=== PATIENT | female | born 1950 | race Hispanic/Latino ===

== ENCOUNTER 2019-03-09 22:27 | Observation (INO) | payer MEDICARE ==
[2019-03-09 22:42] VITALS: BMI 30.2
--- NOTE | 2019-03-09 23:19 | ED PDOC ---
HPI: Abdomen Time Seen by Provider: 03/09/19 22:38 Chief Complaint (Nursing): Abdominal Pain Chief Complaint (Provider): Abdominal pain History Per: Patient History/Exam Limitations: no limitations Onset/Duration Of Symptoms: Hrs Outside of [place] travel?: No Current Symptoms Are (Timing): Still Present Location Of Pain/Discomfort: Diffuse, RUQ, LUQ Quality Of Discomfort: "Pain" Associated Symptoms: Chills, Nausea, Vomiting, Loss Of Appetite. denies: Fever, Diarrhea, Urinary Symptoms Additional History Per: Patient Additional Complaint(s): 69yo female, with history of HTN, Afib, comes to ER reporting upper abdominal pain since 5p today. Patient states the pain started on her right side and is now present across her abdomen. Patient reports associated nausea, vomiting, sweats and decreased appetite. Patient initially had shortness of breath but states that has now resolved. She also states her symptoms including the abdominal pain are intermittent and presented again upon arrival. She denies any recent illnesses but states she changed her blood pressure medication 3 days ago to enalapril; states today is the 3rd dose and the symptoms started after taking the medication. She did not have such symptoms while taking the first 2 doses. Otherwise, no chest pain, weakness, headache, or other complaints. Past Medical History Reviewed: Historical Data, Nursing Documentation, Vital Signs Vital Signs: Last Vital Signs Temp 98.1 F 03/09/19 22:29 Pulse 105 H 03/09/19 22:29 Resp 18 03/09/19 22:29 BP 159/86 H 03/09/19 22:29 Pulse Ox 98 03/09/19 22:29 Primary Care Provider: Ok Lindsay - Medical History PMH: Atrial Fibrillation, HTN - Surgical History Other surgeries: partial thyroidectomy, ankle surgery - Family History Family History: States: No Known Family Hx - Social History Current smoker - smoking cessation education provided: No Alcohol: None Drugs: Denies - Home Medications Home Medications: Ambulatory Orders Medication Instructions Recorded Acetaminophen [Tylenol 325mg tab] 650 mg PO Q6 PRN tab 03/10/19 Atorvastatin [Lipitor] 10 mg PO DAILY 03/10/19 Ciprofloxacin HCl [Cipro] 500 mg PO BID #14 tab 03/10/19 Enalapril Maleate 5 mg PO DAILY 03/10/19 Metronidazole [Flagyl] 500 mg PO TID #21 tab 03/10/19 - Allergies Allergies/Adverse Reactions: Allergies Allergy/AdvReac Type Severity Reaction Status Date / Time No Known Allergies Allergy Verified 03/09/19 22:29 Review of Systems ROS Statement: Except As Marked, All Systems Reviewed And Found Negative Constitutional: Positive for: Chills, Sweats. Negative for: Fever Cardiovascular: Negative for: Chest Pain Respiratory: Positive for: Shortness of Breath (now resolved) Gastrointestinal: Positive for: Nausea, Vomiting, Abdominal Pain. Negative for: Diarrhea, Constipation Neurological: Negative for: Weakness, Headache Physical Exam - Reviewed Nursing Documentation Reviewed: Yes Vital Signs Reviewed: Yes - Physical Exam Appears: Positive for: Non-toxic, No Acute Distress Head Exam: Positive for: ATRAUMATIC, NORMAL INSPECTION, NORMOCEPHALIC Skin: Positive for: Normal Color Eye Exam: Positive for: Normal appearance, EOMI, PERRL ENT: Positive for: Normal ENT Inspection Neck: Positive for: Supple Cardiovascular/Chest: Positive for: Regular Rate, Rhythm. Negative for: Tachycardia, Irregularly Irregular Respiratory: Positive for: Normal Breath Sounds. Negative for: Respiratory Distress Gastrointestinal/Abdominal: Positive for: Bowel Sounds, Soft, Tenderness (diffuse upper abdomen). Negative for: Mass, Guarding, Rebound Back: Positive for: Normal Inspection Extremity: Positive for: Normal ROM Neurological/Psych: Positive for: Awake, Alert, Normal Tone, Oriented (x 3) - Laboratory Results Result Diagrams: 03/10/19 14:41 03/10/19 00:05 - ECG ECG: Positive for: Interpreted By Me, Viewed By Me ECG Rhythm: Positive for: Sinus Rhythm Interpretation Of ECG: Occasional PVC Rate: 93 O2 Sat by Pulse Oximetry: 98 (RA) Pulse Ox Interpretation: Normal Medical Decision Making Medical Decision Making: Impression: Upper abdominal pain in setting of recent medication change, rule out obstrcution/infection/inflammation Plan: -- Labs -- EKG -- CT A/P w/ IV contrast -- Urinalysis -- Zofran 4mg IV 00:24 Labs reviewed, patient with elevated white count and neutrophils UA reviewed and patient with a UTI 01:13 VBG reviewed, lactate is 1.5 03:52 CT Abdomen/Pelvis: Minimal bilateral basilar subsegmental atelectatic pulmonary changes. Mild cardiomegaly. Small sliding hiatal hernia. Simple cysts of the right hepatic lobe the largest measuring 1.3 cm. Mild diffuse thickening of the transverse and descending colon. Underdistention, spasm versus mild uncomplicated colitis. Mild diffuse thickening of the gallbladder. Sonographic evaluation is suggested. 3.5 cm calcified uterine fibroid. Mild amount of free fluid in the abdomen or pelvis. Thickening of the small bowel loops in the right lower quadrant involving the ilium suggestive of acute inflammatory pathology without perforation or pneumatosis intestinalis. The liver is of uniform attenuation without mass or defect. There is no intra or extrahepatic biliary ductal dilatation. The spleen is normal. The pancreas is of normal contour and attenuation characteristics. There is no evidence of adrenal mass. Both kidneys demonstrate prompt and equal nephrograms. The kidneys are normal in size, shape and configuration. There is no evidence of renal or ureteral mass. No renal or ureteral calculi are identified. There is no hydroureter or hydronephrosis. No evidence for appendicitis. No evidence for small or large bowel obstruction. There is no evidence of intrinsic or extrinsic bladder mass. Images of the lung bases show no evidence of pleural or parenchymal mass. There are no pleural effusions. The bony structures are free of lytic or blastic lesions. IMPRESSION: Minimal bilateral basilar subsegmental atelectatic pulmonary changes. Mild cardiomegaly. Small sliding hiatal hernia. Simple cysts of the right hepatic lobe the largest measuring 1.3 cm. Mild diffuse thickening of the transverse and descending colon. Underdistention, spasm versus mild uncomplicated colitis. Mild diffuse thickening of the gallbladder. Sonographic evaluation is suggested. 3.5 cm calcified uterine fibroid. Mild amount of free fluid in the abdomen or pelvis. Thickening of the small bowel loops in the right lower quadrant involving the ilium suggestive of acute inflammatory pathology without perforation or pneumatosis intestinalis. US galbladder ordered for further evaluation. 0539 US Galbladder Findings: Limited visualization of the liver. Liver measures 14 cm. Normal gallbladder wall thickness measuring 2.1 mm. Cholelithiasis. No sonographic evidence of acute cholecystitis. Unremarkable IVC. Non-aneurysmal aorta. Nondilated common bile duct measuring 2.5 mm. Unremarkable right kidney. Impression: Cholelithiasis without acute cholecystitis. 05:43 Patient to be admitted due to UTI, sepsis. IV Antibiotics initiated. Patient admitted under hospitalist restaurant crew person. Plan for admission discussed with patient, who is agreeable. 05:[address] Jerez, who accepts patient for admission Care transferred over to Dr. Jerez at this time. Scribe Attestation: Documented by Renetta Child, acting as a scribe for Rashida Benson MD. Provider Scribe Attestation: All medical record entries made by the Scribe were at my direction and personally dictated by me. I have reviewed the chart and agree that the record accurately reflects my personal performance of the history, physical exam, medical decision making, and the department course for this patient. I have also personally directed, reviewed, and agree with the discharge instructions and disposition. Disposition - Clinical Impression Clinical Impression: Abdominal discomfort - Patient ED Disposition Is Patient to be Admitted: Yes Counseled Patient/Family Regarding: Studies Performed, Diagnosis - Disposition Disposition Time: 04:00 Condition: STABLE
[2019-03-10 00:10] LABS: BASO % 0.2 % (0.0-2.0); HEMOGLOBIN 14.8 g/dL (12.0-16.0); LYMPH # 0.8 K/uL (1.0-4.3); LYMPH % 5.8 % (20.0-40.0); MEAN CELL VOLUME 93.7 fl (81.0-99.0); MEAN CORPUSCULAR HEMOGLOBIN 30.5 pg (27.0-31.0); MEAN CORPUSCULAR HGB CONC 32.6 g/dL (33.0-37.0); MEAN PLATELET VOLUME 8.6 fl (7.2-11.7); MONO # 0.4 K/uL (0.0-0.8); MONO % 2.9 % (0.0-10.0); NEUT # 12.2 K/uL (1.8-7.0); NEUT % 91.1 % (50.0-75.0); PLATELET COUNT 250 K/uL (130-400); RBC 4.84 Mil/uL (3.80-5.20); RED CELL DISTRIBUTION WIDTH 13.9 % (11.5-14.5); WHITE BLOOD COUNT 13.4 K/uL (4.8-10.8)
[2019-03-10 00:13] LABS: SQUAMOUS EPITHIAL 5 /hpf (0-5); URINE BACTERIA RARE (<OCC); URINE BILIRUBIN NEGATIVE (NEGATIVE); URINE BLOOD SMALL (NEGATIVE); URINE CLARITY CLOUDY (Clear); URINE COLOR YELLOW (YELLOW); URINE GLUCOSE (UA) NEG (NEGATIVE); URINE LEUKOCYTE ESTERASE LARGE Leu/uL (Negative); URINE PROTEIN 100 mg/dL (NEGATIVE); URINE UROBILINOGEN 0.2-1.0 mg/dL (0.2-1.0)
[2019-03-10 00:23] LABS: ALB/GLOB RATIO 1.3 (1.0-2.1); ALBUMIN 4.5 g/dL (3.5-5.0); ALT/SGPT 23 U/L (9-52); AST/SGOT 45 U/L (14-36); BLOOD UREA NITROGEN 13 mg/dl (7-17); CALCIUM 9.3 mg/dL (8.4-10.2); GFR NON-AFRICAN AMERICAN > 60
[2019-03-10] MEDS ORDERED: Sodium Chloride 0.9% 1,000 ML IV STA ×2 (00:25→05:47)
[2019-03-10 00:50] LABS: BANDS 2 % (0-2); LYMPHOCYTE 7 % (20-50); MONOCYTE 6 % (0-10); NEUTROPHIL 85 % (42-75); PLATELET ESTIMATE NORMAL (NORMAL); TOTAL CELLS COUNTED 100
[2019-03-10 01:12] LABS: VENOUS BLOOD GAS BASE EXCESS 5.8 mmol/L (0.0-2.0); VENOUS BLOOD GAS PCO2 47 mmHg (40-60); VENOUS BLOOD GAS PO2 21 mm/Hg (30-55); VENOUS BLOOD PH 7.43 (7.32-7.43)
[2019-03-10] MEDS ORDERED: Iohexol 300 100 ML IJ ONE (01:53)
[2019-03-10] MEDS ORDERED: Sodium Chloride 0.9% 50 ML IV ONE (01:53)
[2019-03-10] MEDS ORDERED: cefTRIAXone (Rocephin) 1 gm Inj ONE (06:05)
--- NOTE | 2019-03-10 06:30 | CP.PCM.HP ---
History of Present Illness - History of Present Illness History of Present Illness: 69 yo F with pmhx of htn, afib presents with abdominal pain. Pt reports 1 day history of RUQ pain radiating to RUQ. Pain is consistent. Associated with nausea and NBNB vomiting x 6. Denies fever, sick contacts. Last PO diet and bowel m ovement yesterday; Denies increased urinary frequency or dysuria or hematuria. Pt last UTI was years ago. PMD: Dr. Marquez Cardiology: Dr. Brewer Surg: R thyroidectomy; ankle; Soc: denies smoking, alcohol or illicit drugs; lives alone Rx: reconciled: Enalapril, asa 81, atorvastatin 10 mg Family history: parents with gallbladder disease; pancreatic cancer, CAD Present on Admission - Present on Admission Any Indicators Present on Admission: No History of Uncontrolled Diabetes: No Review of Systems - Gastrointestinal Gastrointestinal: As Per HPI - Genitourinary Genitourinary: As Per HPI Past Patient History - Past Social History Alcohol: None Drugs: Denies - CARDIAC Hx Atrial Fibrillation: Yes Hx Hypertension: Yes - PSYCHIATRIC Hx Substance Use: No Meds Allergies/Adverse Reactions: Allergies Allergy/AdvReac Type Severity Reaction Status Date / Time No Known Allergies Allergy Verified 03/09/19 22:29 Physical Exam - Constitutional Appears: No Acute Distress - Eye Exam Eye Exam: EOMI - ENT Exam ENT Exam: Mucous Membranes Moist - Respiratory Exam Respiratory Exam: Clear to Auscultation Bilateral, NORMAL BREATHING PATTERN. absent: Wheezes - Cardiovascular Exam Cardiovascular Exam: +S1, +S2 - GI/Abdominal Exam GI & Abdominal Exam: Normal Bowel Sounds, Soft. absent: Tenderness - Extremities Exam Extremities exam: Negative for: calf tenderness - Back Exam Back exam: absent: CVA tenderness (L), CVA tenderness (R) - Neurological Exam Neurological exam: Alert, CN II-XII Intact - Psychiatric Exam Psychiatric exam: Normal Affect, Normal Mood Results - Vital Signs Recent Vital Signs: Last Vital Signs Temp 98.1 F 03/09/19 22:29 Pulse 93 H 03/10/19 05:51 Resp 18 03/09/19 22:29 BP 159/86 H 03/09/19 22:29 Pulse Ox 98 03/10/19 05:51 - Labs Result Diagrams: 03/10/19 00:05 03/10/19 00:05 Labs: Laboratory Results - last 24 hr 03/10/19 03/10/19 03/10/19 00:05 00:05 00:05 WBC 13.4 H RBC 4.84 Hgb 14.8 Hct 45.3 MCV 93.7 MCH 30.5 MCHC 32.6 L RDW 13.9 Plt Count 250 MPV 8.6 Neut % (Auto) 91.1 H Lymph % (Auto) 5.8 L [place] % (Auto) 2.9 Eos % (Auto) 0.0 Baso % (Auto) 0.2 Neut # (Auto) 12.2 H Lymph # (Auto) 0.8 L [place] # (Auto) 0.4 Eos # (Auto) 0.0 Baso # (Auto) 0.0 Neutrophils % (Manual) 85 H Band Neutrophils % 2 Lymphocytes % (Manual) 7 L Monocytes % (Manual) 6 Platelet Estimate Normal RBC Morphology Normal pO2 VBG pH VBG pCO2 VBG HCO3 VBG Total CO2 VBG O2 Sat (Calc) VBG Base Excess VBG Potassium Glucose Lactate FiO2 Sodium 140 Potassium 3.9 Chloride 102 Carbon Dioxide 24 Anion Gap 18 BUN 13 Creatinine 0.7 Est GFR ( Amer) > 60 Est GFR (Non-Af Amer) > 60 Random Glucose 175 H Calcium 9.3 Total Bilirubin 0.7 AST 45 H ALT 23 Alkaline Phosphatase 94 Troponin I < 0.0120 Total Protein 7.9 Albumin 4.5 Globulin 3.4 Albumin/Globulin Ratio 1.3 Venous Blood Potassium Urine Color Yellow Urine Clarity Cloudy Urine pH 5.0 Ur Specific [place] 1.021 Urine Protein 100 Urine Glucose (UA) Neg Urine Ketones 20 Urine Blood Small Urine Nitrate Negative Urine Bilirubin Negative Urine Urobilinogen 0.2-1.0 Ur Leukocyte Esterase Large Urine RBC (Auto) 12 H Urine Microscopic WBC 58 H Ur Squamous Epith Cells 5 Urine Bacteria Rare 03/10/19 01:08 WBC RBC Hgb Hct MCV MCH MCHC RDW Plt Count MPV Neut % (Auto) Lymph % (Auto) [place] % (Auto) Eos % (Auto) Baso % (Auto) Neut # (Auto) Lymph # (Auto) [place] # (Auto) Eos # (Auto) Baso # (Auto) Neutrophils % (Manual) Band Neutrophils % Lymphocytes % (Manual) Monocytes % (Manual) Platelet Estimate RBC Morphology pO2 21 L VBG pH 7.43 VBG pCO2 47 VBG HCO3 27.8 VBG Total CO2 32.6 H VBG O2 Sat (Calc) 41.0 VBG Base Excess 5.8 H VBG Potassium 4.3 Glucose 170 H Lactate 1.5 FiO2 21.0 Sodium 139.0 Potassium Chloride 106.0 Carbon Dioxide Anion Gap BUN Creatinine Est GFR ( Amer) Est GFR (Non-Af Amer) Random Glucose Calcium Total Bilirubin AST ALT Alkaline Phosphatase Troponin I Total Protein Albumin Globulin Albumin/Globulin Ratio Venous Blood Potassium 4.3 Urine Color Urine Clarity Urine pH Ur Specific [place] Urine Protein Urine Glucose (UA) Urine Ketones Urine Blood Urine Nitrate Urine Bilirubin Urine Urobilinogen Ur Leukocyte Esterase Urine RBC (Auto) Urine Microscopic WBC Ur Squamous Epith Cells Urine Bacteria Assessment & Plan - Assessment and Plan (Free Text) Assessment: 69 yo F with pmhx of htn, afib presents with abdominal pain. Admitted for sepsis, UTI and biliary colic. Plan: CT A/P: pending official read US gallbladder: pending official read Sepsis WBC: 13.4; HR 105 likely 2/2 uti UA: large leuk est; blood s/p rocephin in ER; c/w with abx IVF: d5 1/2 ns k20 at 1 mx monitor vitals biliary colic found on ct benign physical exam nausea: zofran prn continue to monitor HTN c/w home meds monitor vitals Afib Dr. encarnacion Pt states not on anticoagulant DVT prophylaxis SCDs Case and plan d/w Dr. Solitario Sawyer MD PGY2
[2019-03-10] MEDS ORDERED: Potassium Ch 20mEq in D5-1/2NS 1,000 ML IV SCH (07:00)
[2019-03-10 08:50] VITALS: RESP 20; TEMP 97.9; O2SAT 98
--- NOTE | 2019-03-10 10:33 | CT ---
Date of service: 03/10/2019 PROCEDURE: CT Abdomen and Pelvis with contrast HISTORY: Abdominal pain and vomiting COMPARISON: March 10, 2019. Abdominal ultrasound. TECHNIQUE: Intravenous contrast dose: 95 cc Omnipaque 300. Radiation dose: Total exam DLP = 615.77 mGy-cm. This CT exam was performed using one or more of the following dose reduction techniques: Automated exposure control, adjustment of the mA and/or kV according to patient size, and/or use of iterative reconstruction technique. FINDINGS: LOWER THORAX: Small hiatal hernia. LIVER: Unremarkable. No gross lesion or ductal dilatation. Multiple well-circumscribed benign-appearing masses likely simple hepatic cysts. Hepatic steatosis noted. GALLBLADDER AND BILE DUCTS: Unremarkable. PANCREAS: Multiple small less than 5 mm cysts in the pancreas. No evidence of acute pancreatitis or pancreatic mass. SPLEEN: Unremarkable. ADRENALS: Unremarkable. No mass. KIDNEYS AND URETERS: Unremarkable. No hydronephrosis. No solid mass. VASCULATURE: Unremarkable. No aortic aneurysm. No atherosclerotic calcification or mural plaque present. BOWEL: Dilated small bowel without mechanical obstruction, likely enteritis. There are inflammatory changes associated with this tract toward the mesentery. APPENDIX: In normal appendix is not visible. PERITONEUM: Trace perihepatic fluid, fluid identified in the cul-de-sac and right lower quadrant. No free air. LYMPH NODES: Unremarkable. No enlarged lymph nodes. BLADDER: Unremarkable. REPRODUCTIVE: Dense calcifications within a diminutive, atrophic uterus consistent with fibroids which have calcified. BONES: No acute fracture. Grade 1 anterolisthesis with associated spondylolysis L5-S1. OTHER FINDINGS: None. IMPRESSION: Enteritis/inflammatory bowel disease. Findings are primarily within mid and distal small bowel. Abdominal and pelvic ascites. Tiny, less than 5 mm pancreatic cyst. Etiology/significance uncertain. No comparison studies available for review. Additional benign and/or incidental findings described above. Concordant results (preliminary interpretation) provided by [facility]. Procedure Completed: 02:01. Preliminary Report: Interpreted and electronically signed: 03:50. Final Interpretation: 10:23. March 10, 2019.
--- NOTE | 2019-03-10 11:47 | US ---
Date of service: 03/10/2019 HISTORY: ABD PAIN COMPARISON: None. TECHNIQUE: Sonographic evaluation of the right upper quadrant of the abdomen. FINDINGS: LIVER: Measures 14.0 cm in length. Patent portal and hepatic venous systems. Portal venous flow: Hepatopetal. echogenicity of the liver parenchyma. No mass. No intrahepatic bile duct dilatation. GALLBLADDER: Unremarkable. No gallstones. COMMON BILE DUCT: Measures 2.5 mm. No stones. No dilatation. PANCREAS: Obscured by overlying bowel gas. Non diagnostic assessment of the pancreas. RIGHT KIDNEY: Measures 3.7 x 9.0 cm in length. Normal echogenicity. No calculus, mass, or hydronephrosis. AORTA: Obscured by overlying bowel gas. Non diagnostic assessment of the aorta. IVC: Obscured by overlying bowel gas. Non diagnostic assessment of the IVC. OTHER FINDINGS: None . IMPRESSION: No acute findings related to/ accounting for the clinical presentation. Specifically, gallstones are not evident. Limitations of the study: Technical factors preclude meaningful assessment of pancreas, IVC, aorta and to lesser extent liver. Discordant findings with the original preliminary interpretation. The original report states "cholelithiasis without acute cholecystitis." Review of the study indicates no evidence of gallstones. Communication of results: I determined that the patient was admitted with working diagnosis of gallbladder disease in urinary tract infection. I communicated this discordance with the nurse involved in the care and management this patient at 11:39 (David). Per institutional protocol, the study will be placed in the miss read category and is subject to follow-up peer review.
--- NOTE | 2019-03-10 13:31 | CARD ---
APPROVED REPORT Date of service: 03/09/2019 EKG Measurement Heart [id number] [place] [id number] <Conclusion> Sinus rhythm with occasional premature ventricular complexes Possible Inferior infarct, age undetermined Non specific T-wave changes Abnormal ECG
[2019-03-10 15:06] LABS: HEMOGLOBIN 13.2 g/dL (12.0-16.0); MEAN CELL VOLUME 93.1 fl (81.0-99.0); MEAN CORPUSCULAR HEMOGLOBIN 30.7 pg (27.0-31.0); RBC 4.29 Mil/uL (3.80-5.20); RED CELL DISTRIBUTION WIDTH 13.8 % (11.5-14.5)
[2019-03-10 16:04] VITALS: BP 132/67
[2019-03-10] MEDS ORDERED: metroNIDAZOLE 500mg/100ml NS 100 ML IVPB SCH (17:00)
--- NOTE | 2019-03-10 18:23 | CP.PCM.DIS ---
Provider - Provider Date of Admission: 03/10/19 05:42 Attending physician: Navjot Jerez MD Primary care physician: DR. Lindsay Time Spent in preparation of Discharge (in minutes): 20 Hospital Course - Lab Results Lab Results: Most Recent Lab Values WBC 11.0 K/uL (4.8-10.8) H 03/10/19 14:41 RBC 4.29 Mil/uL (3.80-5.20) 03/10/19 14:41 Hgb 13.2 g/dL (12.0-16.0) 03/10/19 14:41 Hct 39.9 % (34.0-47.0) 03/10/19 14:41 MCV 93.1 fl (81.0-99.0) 03/10/19 14:41 MCH 30.7 pg (27.0-31.0) 03/10/19 14:41 MCHC 33.0 g/dL (33.0-37.0) 03/10/19 14:41 RDW 13.8 % (11.5-14.5) 03/10/19 14:41 Plt Count 217 K/uL (130-400) 03/10/19 14:41 MPV 8.6 fl (7.2-11.7) 03/10/19 00:05 Neut % (Auto) 91.1 % (50.0-75.0) H 03/10/19 00:05 Lymph % (Auto) 5.8 % (20.0-40.0) L 03/10/19 00:05 [place] % (Auto) 2.9 % (0.0-10.0) 03/10/19 00:05 Eos % (Auto) 0.0 % (0.0-4.0) 03/10/19 00:05 Baso % (Auto) 0.2 % (0.0-2.0) 03/10/19 00:05 Neut # (Auto) 12.2 K/uL (1.8-7.0) H 03/10/19 00:05 Lymph # (Auto) 0.8 K/uL (1.0-4.3) L 03/10/19 00:05 [place] # (Auto) 0.4 K/uL (0.0-0.8) 03/10/19 00:05 Eos # (Auto) 0.0 K/uL (0.0-0.7) 03/10/19 00:05 Baso # (Auto) 0.0 K/uL (0.0-0.2) 03/10/19 00:05 Neutrophils % (Manual) 85 % (42-75) H 03/10/19 00:05 Band Neutrophils % 2 % (0-2) 03/10/19 00:05 Lymphocytes % (Manual) 7 % (20-50) L 03/10/19 00:05 Monocytes % (Manual) 6 % (0-10) 03/10/19 00:05 Platelet Estimate Normal (NORMAL) 03/10/19 00:05 RBC Morphology Normal (NORMAL) 03/10/19 00:05 pO2 21 mm/Hg (30-55) L 03/10/19 01:08 VBG pH 7.43 (7.32-7.43) 03/10/19 01:08 VBG pCO2 47 mmHg (40-60) 03/10/19 01:08 VBG HCO3 27.8 mmol/L 03/10/19 01:08 VBG Total CO2 32.6 mmol/L (22-28) H 03/10/19 01:08 VBG O2 Sat (Calc) 41.0 % (40-65) 03/10/19 01:08 VBG Base Excess 5.8 mmol/L (0.0-2.0) H 03/10/19 01:08 VBG Potassium 4.3 mmol/L (3.6-5.2) 03/10/19 01:08 Sodium 139.0 mmol/L (132-148) 03/10/19 01:08 Chloride 106.0 mmol/L (98-107) 03/10/19 01:08 Glucose 170 mg/dL (65-105) H 03/10/19 01:08 Lactate 1.5 mmol/L (0.7-2.1) 03/10/19 01:08 FiO2 21.0 % 03/10/19 01:08 Sodium 140 mmol/l (132-148) 03/10/19 00:05 Potassium 3.9 MMOL/L (3.6-5.0) 03/10/19 00:05 Chloride 102 mmol/L (98-107) 03/10/19 00:05 Carbon Dioxide 24 mmol/L (22-30) 03/10/19 00:05 Anion Gap 18 (10-20) 03/10/19 00:05 BUN 13 mg/dl (7-17) 03/10/19 00:05 Creatinine 0.7 mg/dl (0.7-1.2) 03/10/19 00:05 Est GFR ( Amer) > 60 05 00:05 Est GFR (Non-Af Amer) > 60 03/10/19 00:05 Random Glucose 175 mg/dL (65-105) H 03/10/19 00:05 Calcium 9.3 mg/dL (8.4-10.2) 03/10/19 00:05 Total Bilirubin 0.7 mg/dl (0.2-1.3) 03/10/19 00:05 AST 45 U/L (14-36) H 03/10/19 00:05 ALT 23 U/L (9-52) 03/10/19 00:05 Alkaline Phosphatase 94 U/L (38-126) 03/10/19 00:05 Troponin I < 0.0120 ng/mL (0.00-0.120) 03/10/19 00:05 Total Protein 7.9 G/DL (6.3-8.2) 03/10/19 00:05 Albumin 4.5 g/dL (3.5-5.0) 03/10/19 00:05 Globulin 3.4 gm/dL (2.2-3.9) 03/10/19 00:05 Albumin/Globulin Ratio 1.3 (1.0-2.1) 03/10/19 00:05 Venous Blood Potassium 4.3 mmol/L (3.6-5.2) 03/10/19 01:08 Urine Color Yellow (YELLOW) 03/10/19 00:05 Urine Clarity Cloudy (Clear) 03/10/19 00:05 Urine pH 5.0 (5.0-8.0) 03/10/19 00:05 Ur Specific [place] 1.021 (1.003-1.030) 03/10/19 00:05 Urine Protein 100 mg/dL (NEGATIVE) 03/10/19 00:05 Urine Glucose (UA) Neg mg/dL (NEGATIVE) 03/10/19 00:05 Urine Ketones 20 mg/dL (NEGATIVE) 03/10/19 00:05 Urine Blood Small (NEGATIVE) 03/10/19 00:05 Urine Nitrate Negative (NEGATIVE) 03/10/19 00:05 Urine Bilirubin Negative (NEGATIVE) 03/10/19 00:05 Urine Urobilinogen 0.2-1.0 mg/dL (0.2-1.0) 03/10/19 00:05 Ur Leukocyte Esterase Large [place]ali/uL (Negative) 03/10/19 00:05 Urine RBC (Auto) 12 /hpf (0-3) H 03/10/19 00:05 Urine Microscopic WBC 58 /hpf (0-5) H 03/10/19 00:05 Ur Squamous Epith Cells 5 /hpf (0-5) 03/10/19 00:05 Urine Bacteria Rare (<OCC) 03/10/19 00:05 - Hospital Course Hospital Course: 69 y/o female with PMH HTN , Afib presented with 1 day history of sharp upper quadrant abdominal pain , associated with few episodes of nausea and vomiting In ER patient initially found to be tachycardic HR 106 with WBC 13 K. CMP - wnl , normal LFT and Bilirubin UA reported positive for large LE , Bacteria and WBC She was admitted with suspected diagnosis of sepsis and UTI, started on IVF and IV rocephin Lactic acid 1.5 CT abdomen showed enteritis/ IBD and Abd US showed no Cholelithiasis no Cholecystitis Patient clinically showed significant improvement. Her pain resolved , remained hemodynamically stable, afebrile . Repeat CBC WBC 11 k Advanced diet to low fiber diet and tolerated well . Patient wants to go home on Po antibiotics. Will d/c patient home on Po Cipro and Flagyl for 7 days and follow up with PMD Dr. Lindsay 1. Sepsis ruled out 2.Enteritis 3.UTI 4.Afib 5.HTN Discharge Exam - Head Exam Head Exam: ATRAUMATIC, NORMAL INSPECTION, NORMOCEPHALIC - Eye Exam Eye Exam: EOMI, Normal appearance, PERRL Pupil Exam: NORMAL ACCOMODATION - ENT Exam ENT Exam: Mucous Membranes Moist, Normal Exam - Neck Exam Neck exam: Full Rom, Normal Inspection - Respiratory Exam Respiratory Exam: Clear to PA & Lateral, NORMAL BREATHING PATTERN. absent: Rales, Rhonchi, Wheezes - Cardiovascular Exam Cardiovascular Exam: REGULAR RHYTHM, RRR, +S1, +S2. absent: JVD - GI/Abdominal Exam GI & Abdominal Exam: Normal Bowel Sounds, Soft. absent: Distended, Guarding, Rebound, Tenderness - Rectal Exam Rectal Exam: Deferred - Extremities Exam Extremities exam: normal capillary refill, normal inspection, pedal pulses present - Back Exam Back exam: NORMAL INSPECTION - Neurological Exam Neurological exam: Alert, CN II-XII Intact, Oriented x3 - Psychiatric Exam Psychiatric exam: Normal Affect, Normal Mood - Skin Skin Exam: Dry, Intact, Normal Color, Warm Discharge Plan - Discharge Medications Prescriptions: Ciprofloxacin HCl [Cipro] 500 mg PO BID #14 tab Metronidazole [Flagyl] 500 mg PO TID #21 tab - Follow Up Plan Condition: STABLE Disposition: HOME/ ROUTINE Patient education suggested?: Yes Instructions: Urinary Tract Infection, Adult (DC), Inflammatory Bowel Disease (DC) Referrals: Ok Lindsay MD [Staff Provider] -
[2019-03-10] MEDS ORDERED: Ciprofloxacin 400mg/200ml D5W 400 MG/200 ML BAG IVPB SCH (21:00)
[2019-03-11 00:14] VITALS: PULSE 93
== END 2019-03-10 18:15 | disposition home or self-care (01) ==
LOC: H.ER 22:27 → H.ERHOLD 03-10 05:42 → INTOOBSV 03-10 05:42 → H.MEDSURG1 03-10 08:37
PROVIDERS: ADMIT Internal Medicine; ATTEND Internal Medicine
DX: K52.9 Noninfective gastroenteritis and colitis, unspecified (principal); I48.91 Unspecified atrial fibrillation; I10 Essential (primary) hypertension; N39.0 Urinary tract infection, site not specified
CPT/HCPCS: 36415; 74177; 76705; 80053; 81003; 82803; 84484; 85025; 85027; 87040; 87086; 93005; 96374; 96375; 99284; G0378; J0696; J2405; J7030; Q9967